=== PATIENT | female | born 2000 | race Caucasian/White ===

== ENCOUNTER 2025-01-04 05:52 | Emergency (ER) | payer MEDICAID, OTHER ==
[~2025-01-04] VITALS: Ht 154.9 cm; Wt 68.1 kg
--- NOTE | 2025-01-04 06:04 | ECG ---
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
--- NOTE | 2025-01-04 07:00 | ED.PDOC ---
HPI Comments This is a 24 year-old female who presents to the ED with a chief complaint of chest pain with associated SOB onset 04:30. Patient reports chest pain is sharp, intermittent, radiating to back, with no associated relieving factors, began while she was sleeping, woke her up from her sleep. Patient reports this happening before, but denies getting help. She took Aspirin prior to ED arrival. Patient has no further complaints at this time and otherwise denies further associated symptoms of cough, N/V, dizziness, headache, or abdominal pain. Chief Complaint: Chest Pain Time Seen by MD: 07:10 Reviewed Notes: Nurses Notes, Medications, Allergies Allergies: Coded Allergies: No Known Drug Allergy (Verified Allergy, Unknown, 01/04/25) Information Source: Patient, Spouse Mode of Arrival: Ambulatory Severity: Moderate Timing: Hours Duration: Since onset Prehospital treatment: Other (aspirin) Location: Chest (L) Radiation: No Radiation Quality: Sharp, Pressure Onset: While Asleep Cardiac Risk Factors: None PE Risk Factors: None History of: Aspirin Modifying Factors: Nothing Associated Signs and Symptoms: SOB Past Medical History PAST MEDICAL HISTORY: Denies Surgical History: Denies all surgeries 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: 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 Family History Family History: Reviewed,noncontributory to illness, No family hx of Cancer, No family hx of DM, No family hx of Heart blanka, No family hx of HTN, No family hx ofKidney blanka, No family hx of Liver blanka, No family hx of Lung blanka, No family hx of Stroke Social History Smoker: Non-Smoker Alcohol: Denies ETOH Use Drugs: Denies Drug Use Lives In: Home Constitutional: denies: chills, diaphoresis, fatigue, fever, malaise, sweats, weakness, others EENTM: denies: blurred vision, double vision, ear bleeding, ear discharge, ear drainage, ear pain, ear ringing, eye pain, eye redness, hearing loss, mouth pain, mouth swelling, nasal discharge, nose bleeding, nose congestion, nose pain, photophobia, tearing, throat pain, throat swelling, voice changes, others Respiratory: reports: shortness of breath; denies: cough, hemoptysis, or thopnea, SOB at rest, SOB with excertion, stridor, wheezing, others Cardiovascular: reports: chest pain; denies: dizzy spells, diaphoresis, Dyspnea on exertion, edema, irregular heart beat, left arm pain, lightheadedness, palpitations, PND, syncope, others Gastrointestinal: denies: abdomen distended, abdominal pain, blood streaked bowels, constipated, diarrhea, dysphagia, difficulty swallowing, hematemesis, melena, nausea, poor appetite, poor fluid intake, rectal bleeding, rectal pain, vomiting, others Genitourinary: denies: abnormal vagina bleeding, burning, dyspareunia, dysuria, flank pain, frequency, hematuria, incontinence, pain, , vagina discharge, urgency, others Neurological: denies: dizziness, fainting, headache, left sided numbness, left sided weakness, numbness, paresthesia, pre-existing deficit, right sided numbness, right sided weakness, seizure, speech problems, tingling, tremors, weakness, others Musculoskeletal: denies: back pain, gout, joint pain, joint swelling, muscle pain, muscle stiffness, neck pain, others Integumetry: denies: bruises, change in color, change in hair/nails, dryness, laceration, lesions, lumps, rash, wounds, others Allergic/Immunocompromised: denies: Difficulty Healing, Frequent Infections, Hives, Itching, others Hematologic/Lymphatic: denies: anemia, blood clots, easy bleeding, easy bruising, swollen glands, others Endocrine: denies: excessive hunger, excessive sweating, excessive thirst, excessive urination, flushing, intolerance to cold, intolerance to heat, unexplained weight gain, unexplained weight loss, others Psychiatric: denies: anxiety, bipolar disorder, depression, hopeless, panic disorder, schizophrenia, sleepless, suicidal, others All Other Systems: Reviewed and Negative Physical Exam General Appearance: Moderate Distress, Normal HEENT: Normal ENT Inspection, Pharynx Normal, TMs Normal Neck: Full Range of Motion, Non-Tender, Normal, Normal Inspection Respiratory: Chest Non-Tender, Lungs Clear, No Accessory Muscle Use, No Respiratory Distress, Normal Breath Sounds Cardiovascular: No Edema, No JVD, No Murmur, No Gallop, Normal Peripheral Pulses, Regular Rate/Rhythm Breast Exam: Deferred Gastrointestinal: No Organomegaly, Non Tender, No Pulsatile Mass, Normal Bowel Sounds, Soft Genitalia: Deferred Pelvic: Deferred Rectal: Deferred Extremities: No calf tenderness, Normal capillary refill, Normal inspection, Normal range of motion, Non-tender, No pedal edema Musculoskeletal : Apperance: Normal Neurologic: Alert, barrel tester and drainer II-XII nml as Tested, No Motor Deficits, Normal Affect, Normal Mood, No Sensory Deficits Cerebellar Function: Normal Reflexes: Normal Skin: Dry, Normal Color, Warm Peripheral Pulses: 3+ Radial (R), 3+ Radial (L) Lymphatic: No Adenopathy EKG EKG : Pulse Rate (adult): 86 [place]: Normal Cardiac Rhythm: NSR Block: None Hypertrophy: None ST: Normal Was a procedure done? Was a procedure done?: No CP Differential Dx Differential Diagnosis: A-fib, A-Flutter, Angina, Anxiety / Panic Attack, Electrolyte Disorder Differential Diagnosis: HTN Essential Differential Diagnosis: Chest Wall Pain, Esophageal reflux/spasm X-Ray, Labs, Meds, VS Vital Signs Date Time Temp Pulse Resp B/P (MAP) Pulse Ox O2 Delivery O2 Flow Rate FiO2 01/04/25 07:00 86 01/04/25 06:03 86 01/04/25 05:57 97.7 96 16 120/77 100 97.7 Lab Test 01/04/25 07:00 01/04/25 06:10 Range/Units Troponin I High Sensitivity < 3 L < 3 L </=34 ng/L Patient alert pain Complaining of chest discomfort. Vitals stable. Answering all questions. Has taken aspirin prior to coming to the ER. No leg swelling. No shortness a breath. Saturation pristine on room air. Respiratory rate within normal limits. EKG reviewed does not show any acute changes. No risk factors for coronary artery disease. Explained to the patient. Was told to follow up with her primary care physician. Was told to come back if there is any problem. Time of 1ST Reevaluation: 07:40 Reevaluation 1ST: Unchanged Patient Education/Counseling: Diagnosis, Treatment, Prognosis Family Education/Counseling: Diagnosis, Treatment, Prognosis SEPSIS Sepsis Screen Date sepsis recognized/suspect: Jan 03, 2025 Time Sepsis recognized/suspect: 600 Recent Procedure: No On Antibiotic Therapy: No Respiratory Rate >20: No Heart Rate >90: No Temp<36 C (96.8 F) or >38.3 C: No SBP <90 or MAP <65 mmHG: No New Acute Mental Status Change: No Is the patient on CPAP, BIPAP,: No Physician Orders Troponin-I Hs (01/04/25 08:59) Electrocardigram (01/04/25 06:59) Electrocardigram (01/04/25 08:59) Urinalysis (01/04/25 07:20) Vital Signs Date Time Temp Pulse Resp B/P (MAP) Pulse Ox O2 Delivery O2 Flow Rate FiO2 01/04/25 07:00 86 01/04/25 06:03 86 01/04/25 05:57 97.7 96 16 120/77 100 97.7 Departure 1 Departure Time of Disposition: 08:00 Impression: Primary Impression: Musculoskeletal chest pain Disposition: HOME / SELF CARE / HOMELESS Condition: Good Discharged With: Self Critical Care Note Critical Care Time?: No Stability Stability form required: No Heart Score Heart Score: Heart Score Response (Comments) Value History Slightly Suspicious 0 EKG Normal 0 Age <45 0 Risk Factors No known risk factors 0 Troponin Normal limit 0 Total 0 I personally scribed for NICHOLAS MOORE MD ([email or web address]) on 01/04/25 at 07:00. Electronically submitted by Agnes Gomes ([email or web address]). I personally scribed for NICHOLAS MOORE MD ([email or web address]) on 01/04/25 at 07:22. Electronically submitted by Estelita Ng ([email or web address]). NICHOLAS MOORE MD Jan 04, 2025 07:00
[2025-01-04 08:19] VITALS: BP 117/75; PULSE 93; RESP 16; TEMP 97.8; O2SAT 99
[2025-01-04] MEDS: HYDROcodone-ACET 5/325MG TAB PO ONE (08:19)
[2025-01-04 09:02] LABS: Urine Protein, UAD Negative (Negative)
== END 2025-01-04 09:27 | disposition home or self-care (01) ==
LOC: ER 05:52 → EDBD 05:52 → ER 09:27
DX: R07.89 Other chest pain (principal); R06.02 Shortness of breath
CPT/HCPCS: 36415; 81003; 84484; 93005